=== PATIENT | female | born 2000 | race Caucasian/White ===

== ENCOUNTER 2020-07-23 12:45 | Emergency (ER) | payer BC ==
[2020-07-23 15:01] LABS: HEMOGLOBIN 14.5 gm/dl (12.3-15.3); RED BLOOD COUNT 4.66 M/UL (4.00-5.10); WHITE BLOOD COUNT 10.8 K/UL (4.5-11.0)
[2020-07-23 15:31] LABS: BUN/CREATININE RATIO 15 (0-10)
[2020-07-23] MEDS ORDERED: TORADOL 10 MG T10 MG PO (17:11)
== END 2020-07-23 17:30 | disposition home or self-care (01) ==
LOC: ER1 12:45
PROVIDERS: Physician Assistant
DX: R07.89 Other chest pain (principal)
CPT/HCPCS: 80053; 82550; 82553; 83874; 84484; 84703; 85025; 85379; 93005; 96374; 99285; J1885; Q9967